=== PATIENT | female | born 1995 | race African-American/Black ===

== ENCOUNTER 2017-09-06 18:50 | Emergency (ER) | payer SELFPAY ==
[~2017-09-06] VITALS: Ht 165.1 cm; Wt 70.0 kg
[2017-09-07 00:16] VITALS: BP 118/83
== END 2017-09-07 00:22 | disposition home or self-care (01) ==
LOC: ER 18:50
DX: L05.01 Pilonidal cyst with abscess (principal)
CPT/HCPCS: 99282; Z7610; 99281